=== PATIENT | male | born 1950 | race Caucasian/White ===

== ENCOUNTER 2020-09-14 15:40 | Emergency (ER) | payer OTHER ==
[~2020-09-14] VITALS: Ht 154.9 cm; Wt 82.6 kg
[2020-09-14 17:53] LABS: BILIRUBIN Negative (Negative); BLOOD Negative (Negative); CLARITY Clear (Clear); COLOR Yellow (Yellow); GLUCOSE Negative (Negative); KETONE Negative (Negative); LEUKO ESTERASE Negative (Negative); NITRITE Negative (Negative)
[2020-09-14 18:07] LABS: BASO % 0.7 % (0.0-1.0); EOS # 0.6 10*3/uL (0.0-0.4); EOS % 9.9 % (1.0-4.0); HEMATOCRIT 39.2 % (42.0-52.0); LYMPH # 1.9 10*3/uL (1.3-4.4); LYMPH % 34.8 % (27.0-41.0); MEAN CELL VOLUME 82.2 fl (80.0-94.0); MEAN CORPUSCULAR HGB CONC 31.6 g/dl (33.0-37.0); MEAN PLATELET VOLUME 10.1 fl (9.6-12.3); MONO # 0.9 10*3/uL (0.1-1.0); MONO % 15.5 % (3.0-9.0); NEUT # 2.2 10*3/uL (2.3-7.9); NEUT % 38.9 % (47.0-73.0); PLATELET COUNT AUTOMATED 263 10*3/uL (130-400); RED BLOOD COUNT 4.77 10*6/uL (4.50-5.90); RED CELL DISTRI WIDTH 15.1 % (0-14.5); WHITE BLOOD COUNT 5.5 10*3/uL (4.8-10.8)
[2020-09-14 18:08] LABS: BACTERIA 1+
[2020-09-14 18:21] LABS: ALBUMIN 3.5 gm/dl (3.1-4.5); ALKALINE PHOSPHATASE 83 U/L (45-117); BUN 6 mg/dl (7-24); CHLORIDE 109 mmol/L (98-107); CREATININE 0.99 mg/dL (0.70-1.30); LIPASE 153 U/L (73-393); POTASSIUM 3.5 mmol/L (3.5-5.1); SGOT/AST 25 IU/L (3-35); SGPT/ALT 33 U/L (12-78); SODIUM 136 mmol/L (136-145)
[2020-09-14 18:24] LABS: TROPONIN I < 0.015 ng/ml (<0.045)
[2020-09-14] MEDS ORDERED: MUCINEX DM 30/61 TAB PO (19:54)
== END 2020-09-14 20:02 | disposition home or self-care (01) ==
LOC: ED 15:40
PROVIDERS: Physician Assistant
DX: B34.9 Viral infection, unspecified (principal); Z20.822 Contact with and (suspected) exposure to COVID-19; R19.7 Diarrhea, unspecified; Z91.041 Radiographic dye allergy status

== ENCOUNTER → 2020-11-03 | Outpatient (CLI) | payer OTHER ==
[~2020-11-03] MED LIST: MUCINEX DM 30/61 TAB PO
== END | disposition home or self-care (01) ==
LOC: CT 14:00
PROVIDERS: ATTEND Nurse Practitioner Family
DX: R91.1 Solitary pulmonary nodule (principal); J92.9 Pleural plaque without asbestos; I25.10 Atherosclerotic heart disease of native coronary artery without angina pectoris

== ENCOUNTER 2020-12-31 14:15 | Inpatient (IN) | payer OTHER ==
[~2020-12-31] VITALS: Ht 180.3 cm; Wt 82.6 kg
[2020-12-31 14:24] VITALS: BP 96/68
[2020-12-31 17:29] LABS: BASO % 0.3 % (0.0-1.0); EOS # 0.1 10*3/uL (0.0-0.4); HEMATOCRIT 38.7 % (42.0-52.0); LYMPH # 1.3 10*3/uL (1.3-4.4); LYMPH % 14.3 % (27.0-41.0); MEAN CELL VOLUME 78.5 fl (80.0-94.0); MEAN CORPUSCULAR HGB 25.4 pg (27.0-31.0); MEAN CORPUSCULAR HGB CONC 32.3 g/dl (33.0-37.0); MEAN PLATELET VOLUME 9.9 fl (9.6-12.3); MONO # 0.6 10*3/uL (0.1-1.0); MONO % 6.4 % (3.0-9.0); NEUT # 7.1 10*3/uL (2.3-7.9); NEUT % 77.6 % (47.0-73.0); PLATELET COUNT AUTOMATED 295 10*3/uL (130-400); RED BLOOD COUNT 4.93 10*6/uL (4.50-5.90); RED CELL DISTRI WIDTH 14.7 % (0-14.5); WHITE BLOOD COUNT 9.2 10*3/uL (4.8-10.8)
[2020-12-31 17:51] LABS: BILIRUBIN Negative (Negative); BLOOD Negative (Negative); CLARITY Clear (Clear); COLOR Yellow (Yellow); GLUCOSE Negative (Negative); KETONE Trace (Negative); LEUKO ESTERASE Negative (Negative); NITRITE Negative (Negative); PH 7.5 (4.5-8.0); SPECIFIC GRAVITY 1.015 (1.001-1.030)
[2020-12-31 17:55] LABS: ALBUMIN 3.9 gm/dl (3.1-4.5); ALKALINE PHOSPHATASE 72 U/L (45-117); BUN 12 mg/dl (7-24); CHLORIDE 100 mmol/L (98-107); CREATININE 1.25 mg/dL (0.70-1.30); POTASSIUM 4.6 mmol/L (3.5-5.1); SGOT/AST 24 IU/L (3-35); SGPT/ALT 30 U/L (12-78); SODIUM 132 mmol/L (136-145); TOTAL PROTEIN 7.3 gm/dL (6.4-8.2)
[2020-12-31 18:01] LABS: TROPONIN I < 0.015 ng/ml (<0.045)
[2020-12-31 18:12] LABS: BACTERIA 1+; EPITHELIAL CELLS 0-2; MUCOUS 2+; RBC 0-2 rbc/hpf (0-2)
[2020-12-31] MEDS ORDERED: FINASTERIDE5 M1 PO (19:49)
[2020-12-31] MEDS ORDERED: TRAZODONE50 MG PO (19:49)
[2020-12-31] MEDS ORDERED: LOPRESSOR25 MG PO (19:49)
[2020-12-31] MEDS ORDERED: TAMSULOSIN HCL0.4 MG PO (19:50)
[2020-12-31] MEDS ORDERED: VENLAFAXINE75 M1 PO (19:50)
[2020-12-31] MEDS ORDERED: LIPITOR10 MG PO (19:51)
[2020-12-31] MEDS ORDERED: LISINOPRIL5 MG PO (19:51)
[2020-12-31] MEDS ORDERED: PANTOPRAZOLE SO40 MG PO (19:51)
[2020-12-31] MEDS ORDERED: ASPIRIN CHEWABL81 MG PO (19:52)
[2020-12-31 22:05] VITALS: BP 139/87
[2020-12-31] MEDS ORDERED: VITAMIN B121000 MC1 PO (23:48)
[2021-01-01] VITALS: BP 153/78
[2021-01-01 06:40] LABS: BASO % 0.5 % (0.0-1.0); EOS # 0.2 10*3/uL (0.0-0.4); EOS % 2.5 % (1.0-4.0); HEMATOCRIT 37.1 % (42.0-52.0); LYMPH # 1.8 10*3/uL (1.3-4.4); LYMPH % 21.5 % (27.0-41.0); MEAN CELL VOLUME 79.6 fl (80.0-94.0); MEAN CORPUSCULAR HGB 25.3 pg (27.0-31.0); MEAN CORPUSCULAR HGB CONC 31.8 g/dl (33.0-37.0); MEAN PLATELET VOLUME 10.1 fl (9.6-12.3); MONO # 0.9 10*3/uL (0.1-1.0); MONO % 9.9 % (3.0-9.0); NEUT # 5.6 10*3/uL (2.3-7.9); NEUT % 65.4 % (47.0-73.0); PLATELET COUNT AUTOMATED 261 10*3/uL (130-400); RED BLOOD COUNT 4.66 10*6/uL (4.50-5.90); RED CELL DISTRI WIDTH 14.9 % (0-14.5); WHITE BLOOD COUNT 8.6 10*3/uL (4.8-10.8)
[2021-01-01 07:03] LABS: BUN 13 mg/dl (7-24); CHLORIDE 103 mmol/L (98-107); CHOLESTEROL 90 mg/dL (<200); CREATININE 0.99 mg/dL (0.70-1.30); POTASSIUM 4.2 mmol/L (3.5-5.1); SODIUM 135 mmol/L (136-145)
[2021-01-01 07:14] LABS: FREE T4 1.05 ng/dl (0.76-1.46); LDL CHOLESTEROL 37 mg/dL (9-159); TRIGLYCERIDES 108 mg/dl (<150)
[2021-01-01 08:00] VITALS: BP 134/70
[2021-01-01 12:00] VITALS: BP 151/75
[2021-01-01 16:00] VITALS: BP 143/76
[2021-01-01 20:00] VITALS: BP 149/79
[2021-01-02] VITALS: BP 148/74
[2021-01-02 08:00] VITALS: BP 145/89
[2021-01-02] MEDS ORDERED: PYRIDIUM100 MG PO (11:40)
== END 2021-01-02 14:20 | disposition home or self-care (01) | DRG 312 ==
LOC: ED 14:15 → 4E 19:26 → EDHOLD 19:26 → 4E 20:24
PROVIDERS: Family Medicine; Student in an Organized Health Care Education/Training Program; ADMIT Family Medicine; ATTEND Family Medicine
PROC: 4A02XM4 Measurement of Cardiac Total Activity, External Approach (ICD-10-PCS; principal; 2021-01-01)
PROC: 3E073KZ Introduction of Other Diagnostic Substance into Coronary Artery, Percutaneous Approach (ICD-10-PCS; 2021-01-01)
DX: R55 Syncope and collapse (principal); E87.1 Hypo-osmolality and hyponatremia; N40.1 Benign prostatic hyperplasia with lower urinary tract symptoms; R39.11 Hesitancy of micturition; R33.8 Other retention of urine; R73.9 Hyperglycemia, unspecified; D50.9 Iron deficiency anemia, unspecified; I10 Essential (primary) hypertension; J44.9 Chronic obstructive pulmonary disease, unspecified; N32.3 Diverticulum of bladder; I25.2 Old myocardial infarction; Z95.5 Presence of coronary angioplasty implant and graft; Z82.49 Family history of ischemic heart disease and other diseases of the circulatory system; Z91.041 Radiographic dye allergy status; Z79.82 Long term (current) use of aspirin; Z79.899 Other long term (current) drug therapy